=== PATIENT | male | born 1965 | race Two or more races ===

== ENCOUNTER 2016-07-19 12:24 | Emergency (ER) | payer MEDICAID ==
[~2016-07-19] VITALS: Ht 167.6 cm; Wt 111.1 kg
[2016-07-19 13:09] VITALS: BP 138/95
== END 2016-07-19 14:00 | disposition home or self-care (01) ==
LOC: ER 12:24
DX: J20.9 Acute bronchitis, unspecified (principal); J02.9 Acute pharyngitis, unspecified

== ENCOUNTER 2019-12-22 13:49 | Emergency (ER) | payer SELFPAY ==
[~2019-12-22] VITALS: Ht 167.6 cm; Wt 102.1 kg
[2019-12-22] MEDS ORDERED: TETANUS-DIPTH-ACEL PERTUSSIS 0.5ML SYR Tdap IM ONE (15:15)
[2019-12-22 15:16] VITALS: BP 147/92
== END 2019-12-22 15:23 | disposition home or self-care (01) ==
LOC: ER 13:49
DX: S71.052A Open bite, left hip, initial encounter (principal); Z88.0 Allergy status to penicillin; W64.XXXA Exposure to other animate mechanical forces, initial encounter; Y93.89 Activity, other specified; Y92.89 Other specified places as the place of occurrence of the external cause; Y99.8 Other external cause status
CPT/HCPCS: 90471; 90715

== ENCOUNTER 2022-02-14 08:57 | Emergency (ER) | payer MEDICAID | END 2022-02-14 10:18 | disposition left against medical advice (07) | LOC: ER 08:57 | DX: R05.9 Cough, unspecified (principal); Z53.21 Procedure and treatment not carried out due to patient leaving prior to being seen by health care provider ==